=== PATIENT | male | born 1955 | race Two or more races ===

== ENCOUNTER → 2017-12-25 | Outpatient (CLI) | payer MEDICAID ==
[~2017-12-25] VITALS: Ht 175.3 cm; Wt 147.0 kg
[~2017-12-25] MED LIST: ADENOSINE 123 MG in GIVE UN-DILUTED 0 ML IV ONE; ADENOSINE 90 MG/30 ML INJ IV ONE; AMLO5TAB2 PO; ENAL2.5T PO; ERGO1CAP6 PO; GABA300C10 PO; IBUP600T27 PO; METF-370 PO; TERB250T66 PO
== END | disposition home or self-care (01) ==
LOC: Rad HDHVI 13:22
PROVIDERS: ATTEND Internal Medicine
DX: I10 Essential (primary) hypertension (principal); E78.5 Hyperlipidemia, unspecified; E03.9 Hypothyroidism, unspecified; E11.9 Type 2 diabetes mellitus without complications; E66.9 Obesity, unspecified; R63.8 Other symptoms and signs concerning food and fluid intake
CPT/HCPCS: 78452; 93005; 96374; 96375; A9500; J0153

== ENCOUNTER 2025-05-30 09:42 | Day surgery (SDC) | payer OTHER, MEDICAID ==
[2025-05-26 13:18] LABS: Hematocrit 43.4 % (41.0-53.0); Hemoglobin 14.4 g/dL (13.5-17.5); Mean Corpuscular Hemoglobin 29.3 pg (28.0-32.0); Mean Corpuscular Volume 88.7 fL (80.0-100.0); Nucleated Red Blood Cells % 0.2 %
[2025-05-26 13:34] LABS: INR 1.03 (0.9-1.15); Partial Thromboplastin Time 27.6 SEC (24.5-34.5); Prothrombin Time 10.9 sec (9.3-11.8)
[2025-05-26 14:13] LABS: Alanine Aminotransferase 32 U/L (7-40); Alkaline Phosphatase 86 U/L (46-116); Anion Gap 9 (5-15); BUN/Creatinine Ratio 28.1 (10.0-20.0); Calcium 9.4 mg/dL (8.7-10.4); Carbon Dioxide 30 mmol/L (20-31); Chloride 106 mmol/L (98-107); Glucose 101 mg/dL (74-106); Potassium 4.3 mmol/L (3.5-5.1); Sodium 145 mmol/L (136-145); Total Protein 7.0 g/dL (5.7-8.2)
[2025-05-26 14:14] LABS: Albumin 4.5 g/dL (3.2-4.8); Bilirubin, Total 0.6 mg/dL (0.2-1.0); Blood Urea Nitrogen 25 mg/dL (9-23)
[~2025-05-30] VITALS: Ht 175.3 cm; Wt 139.7 kg
[~2025-05-30 09:42] MED LIST changes: -ADENOSINE 123 MG in GIVE UN-DILUTED 0 ML IV ONE; -ADENOSINE 90 MG/30 ML INJ IV ONE; +AMLO1TAB22 PO; -AMLO5TAB2 PO; +ENAL1TAB42 PO; -ENAL2.5T PO; -GABA300C10 PO; +IBUP-1454 PO; -IBUP600T27 PO; -TERB250T66 PO
[2025-05-30] MEDS ORDERED: fentaNYL CITRATE 100 MCG/2 ML VL ONE (11:08)
[2025-05-30] MEDS ORDERED: MIDAZOLAM HCL 2MG/2ML 2ml VIAL (1mg/ml) ONE (11:08)
[2025-05-30] MEDS ORDERED: PROPOFOL 10 MG/ML 20 ML IV ONE (11:22)
[2025-05-30 11:42] VITALS: PULSE 77; RESP 25; TEMP 98.2; O2SAT 94
--- NOTE | 2025-05-30 11:58 | DVHOP2 ---
Operative Report DATE OF OPERATION: 05/30/25 PROCEDURE: Colonoscopy with hot snare polypectomy. PREOPERATIVE INDICATION: The patient is a 69 -year-old male undergoing colonoscopy for personal history of colon polyps POSTOPERATIVE DIAGNOSES: 1. 3-4 mm benign-appearing cecal polyp was seen and removed by hot snare polype ctomy 2. 1 cm ascending colon polyp was seen and removed by hot snare polypectomy 3. 3 mm benign-appearing descending colon polyp was seen and removed by hot snare polypectomy 4. Scattered diverticulosis most prominent in the sigmoid 5. Trace internal hemorrhoids otherwise completely normal colonoscopy examination up to the cecum PROCEDURE PERFORMED BY: Lori Beckwith M.D. SCOPE: Olympus videocolonoscope. ASA CLASS: 3 PREOPERATIVE MEDICATIONS: Dr. Becka Solitario PROCEDURE IN DETAIL: After obtaining an informed consent, the patient was placed on left lateral decubitus position. He was then sedated with the above medications. A rectal examination was performed that was normal. The colonoscope was then passed through the anus into the rectosigmoid and through the descending, transverse, and ascending colon up to the cecum with visualization of the appendiceal orifice, base of the cecum and the ileocecal valve. The colonoscope was then withdrawn. In the base of the cecum there was a 3 mm polyp. This was removed by hot snare polypectomy In the proximal ascending colon there was a 1-1.5 cm benign-appearing polyp that was seen and removed by hot snare polypectomy The descending colon there was another 3 mm benign-appearing polyp that was seen and removed by hot snare polypectomy Patient had scattered diverticular disease most prominent in the sigmoid. On retroflexion he had trace internal hemorrhoids The patient tolerated the procedure well without difficulty. WITHDRAWAL TIME: 10 minutes QUALITY OF THE PREP: [place] Bowel Prep score: 9. COMPLICATIONS : None SPECIMENS: Cecal polyp Ascending colon polyp Descending colon polyp DISPOSITION: Stable D/C to home PLAN: 1. Repeat colonoscopy base on biopsy result likely in 3-5 years 2. Resume GI soft diet advance as tolerated 3. Increase fluid and fiber intake 4. Hold aspirin NSAIDs for one week 5. Outpatient follow up with me in 4-6 weeks to review results and discuss further management LORI BECKWITH MD May 30, 2025 11:58
[2025-05-30 12:00] VITALS: BP 147/95; PULSE 68; RESP 18; O2SAT 95
== END 2025-05-30 13:00 | disposition home or self-care (01) ==
LOC: GI 09:42
PROVIDERS: ATTEND Internal Medicine Gastroenterology
DX: Z12.11 Encounter for screening for malignant neoplasm of colon (principal); K57.30 Diverticulosis of large intestine without perforation or abscess without bleeding; K63.5 Polyp of colon; K64.8 Other hemorrhoids; Z86.0100 Personal history of colon polyps, unspecified; D12.0 Benign neoplasm of cecum; D12.2 Benign neoplasm of ascending colon; E11.40 Type 2 diabetes mellitus with diabetic neuropathy, unspecified; J44.9 Chronic obstructive pulmonary disease, unspecified; I10 Essential (primary) hypertension; E66.01 Morbid (severe) obesity due to excess calories; Z68.42 Body mass index [BMI] 45.0-49.9, adult; N40.0 Benign prostatic hyperplasia without lower urinary tract symptoms; Z79.899 Other long term (current) drug therapy; Z98.890 Other specified postprocedural states
CPT/HCPCS: 36415; 45385; 80053; 82962; 85025; 85610; 85730; 88305; J1100; J2250; J2704; J3010; J7030

== ENCOUNTER 2025-06-27 09:17 | Day surgery (SDC) | payer OTHER, MEDICAID ==
[2025-06-25 14:48] LABS: Hematocrit 43.1 % (41.0-53.0); Hemoglobin 14.4 g/dL (13.5-17.5); Mean Corpuscular Hemoglobin 29.1 pg (28.0-32.0); Mean Corpuscular Volume 87.4 fL (80.0-100.0); Nucleated Red Blood Cells % 0.1 %
[2025-06-25 14:56] LABS: Urine Protein, UAD Negative (Negative)
[2025-06-25 15:18] LABS: Alanine Aminotransferase 25 U/L (7-40); Albumin 4.5 g/dL (3.2-4.8); Alkaline Phosphatase 90 U/L (46-116); Anion Gap 8 (5-15); BUN/Creatinine Ratio 27.2 (10.0-20.0); Bilirubin, Total 0.4 mg/dL (0.2-1.0); Blood Urea Nitrogen 22 mg/dL (9-23); Calcium 9.5 mg/dL (8.7-10.4); Carbon Dioxide 30 mmol/L (20-31); Chloride 106 mmol/L (98-107); Glucose 88 mg/dL (74-106); Potassium 4.1 mmol/L (3.5-5.1); Sodium 144 mmol/L (136-145); Total Protein 6.9 g/dL (5.7-8.2)
[~2025-06-27] VITALS: Ht 175.3 cm; Wt 140.6 kg
[~2025-06-27 09:17] MED LIST changes: +ATOR10TA52 PO; +DICL-545 EX; +DOXY50CA PO; +DULO20CA PO; +FAMO-68 PO; +METH-1182 PO; +MUPI2OIN2 EX; +TAMS1CAP25 PO
[2025-06-27] MEDS ORDERED: GLYCOPYRROLATE 0.2 MG/ML 1ML VIAL ONE (10:52)
[2025-06-27] MEDS ORDERED: MIDAZOLAM HCL 2MG/2ML 2ml VIAL (1mg/ml) ONE (10:52)
[2025-06-27] MEDS ORDERED: ONDANSETRON HCL 4 MG/2 ML VIAL ONE (10:52)
[2025-06-27] MEDS ORDERED: LIDOCAINE 2% (LOCAL ANESTH.) PF 5ml SDV ONE (10:52)
[2025-06-27] MEDS ORDERED: fentaNYL CITRATE 100 MCG/2 ML VL ONE (10:52)
[2025-06-27] MEDS ORDERED: PROPOFOL 10 MG/ML 20 ML IV ONE (10:52)
[2025-06-27 11:12] VITALS: PULSE 78; RESP 20; TEMP 97.5
--- NOTE | 2025-06-27 11:19 | DVHOP2 ---
Operative Report DATE OF OPERATION: 06/27/25 PROCEDURE: Upper Endoscopy with biopsy. PREOPERATIVE INDICATION: The patient is a 69 -year-old male undergoing endoscopy for abdominal pain and dyspepsia POSTOPERATIVE DIAGNOSES: 1. 2 cm sliding-type hiatal hernia with irregular squamocolumnar junction and short-segment extension of columnar epithelium into the distal esophagus for 2 cm from which biopsies were obtained 2. Mild gastritis involving the antrum and body of the stomach otherwise normal examination up to the 2nd and 3rd part of the duodenum 3. Mild tertiary contractions of the esophagus PROCEDURE PERFORMED BY: Lori Beckwith GI NURSE: Eric SCOPE: Olympus videoendoscope. ASA CLASS: 3 PREOPERATIVE MEDICATIONS: Mac sedation, Dr. Baldwin PROCEDURE IN DETAIL: After obtaining an informed consent, the patient was placed on left lateral decubitus position. The patient was then sedated with the above medications. A bite block was placed between his teeth. The endoscope was then passed through the oropharynx, into the esophagus, and through the stomach and pylorus up to the second and third part of the duodenum. The endoscope was then withdrawn. The 2nd and 3rd part of the duodenal and the duodenal bulb were normal. Duodenal biopsies were obtained The pre-pyloric area antrum and body showed mild gastritis with some hyperemia erythema. Gastric biopsies were obtained On retroflexion and straight on view the patient had 2 cm sliding-type hiatal hernia with slightly irregular squamocolumnar junction There was short-segment extension of columnar epithelium into the distal esophagus 2 cm from which biopsies were obtained Patient had some tertiary contractions of the esophagus. The remaining distal and proximal esophagus and oropharynx were unremarkable The patient tolerated the procedure well without difficulty. COMPLICATIONS : None SPECIMENS: Duodenal biopsies Gastric biopsy Esophageal biopsies DISPOSITION: Stable D/C to home PLAN: 1. Await for biopsy result;; resume soft mechanical diet 2. Will place pt on Protonix 40 mg p.o. daily 3. Avoid aspirin NSAIDs smoking alcohol 4. Outpatient follow up with me in 2-4 weeks to review results and discuss further management LORI BECKWITH MD Jun 27, 2025 11:19
[2025-06-27 11:27] VITALS: PULSE 80; RESP 20
[2025-06-27 11:42] VITALS: PULSE 75; RESP 20
[2025-06-27 11:50] VITALS: BP 132/87; PULSE 77; O2SAT 95
[2025-06-27 12:12] VITALS: RESP 20
== END 2025-06-27 12:12 | disposition home or self-care (01) ==
LOC: GI 09:17
PROVIDERS: ATTEND Internal Medicine Gastroenterology
DX: R13.10 Dysphagia, unspecified (principal); K29.50 Unspecified chronic gastritis without bleeding; K31.A0 Gastric intestinal metaplasia, unspecified; K21.00 Gastro-esophageal reflux disease with esophagitis, without bleeding; K44.9 Diaphragmatic hernia without obstruction or gangrene; R10.9 Unspecified abdominal pain; E11.40 Type 2 diabetes mellitus with diabetic neuropathy, unspecified; I11.0 Hypertensive heart disease with heart failure; I50.9 Heart failure, unspecified; N40.0 Benign prostatic hyperplasia without lower urinary tract symptoms; G47.30 Sleep apnea, unspecified; E66.9 Obesity, unspecified; F32.A Depression, unspecified; Z90.49 Acquired absence of other specified parts of digestive tract; Z98.890 Other specified postprocedural states; Z96.651 Presence of right artificial knee joint; Z79.899 Other long term (current) drug therapy; Z79.84 Long term (current) use of oral hypoglycemic drugs; Z83.3 Family history of diabetes mellitus; Z80.9 Family history of malignant neoplasm, unspecified
CPT/HCPCS: 36415; 43239; 80053; 81001; 82962; 85025; 85730; 88305; 88312; 88313; 88342; J2003; J2250; J2405; J2704; J3010; J7030; J7040